=== PATIENT | female | born 1990 | race Caucasian/White ===

== ENCOUNTER 2016-12-25 19:49 | Inpatient (IN) | payer OTHER ==
[~2016-12-25] VITALS: Ht 170.2 cm; Wt 81.4 kg
[2016-12-25] VITALS (10 sets, daily range): BP systolic 107–150; BP diastolic 56–77; PULSE 61–88; TEMP 98.3–98.4
[2016-12-25 20:53] LABS: BASO % 0.4 % (0.0-2.0); EOS % 0.3 % (0-4.0); GRAN # 7.5 (1.4-6.5); GRAN % 75.3 % (42.2-75.2); HEMATOCRIT 32.3 % (37.0-47.0); HEMOGLOBIN 10.8 g/dl (12.5-16.0); LYMPH # 1.8 (1.2-3.4); LYMPH % 17.7 % (20.0-51.0); MEAN CELL VOLUME 82 fl (80.0-100.0); MEAN CORPUSCULAR HEMOGLOBIN 27 pg (27.0-31.0); MEAN CORPUSCULAR HGB CONC 33 g/dl (33.0-37.0); MEAN PLATELET VOLUME 10.1 fl (7.4-10.4); MONO # 0.6 (0.1-0.6); MONO % 5.6 % (1.7-9.3); PLATELET COUNT 261 K/mm3 (130-400); RED BLOOD COUNT 3.94 M/mm3 (4.10-5.30); REDCELL DISTRIBUTION WIDTH-CV 13.6 % (11.5-14.5); WHITE BLOOD COUNT 9.9 K/mm3 (4.8-10.8)
[2016-12-25] MEDS ORDERED: PRENATAL MVI (21:15)
[2016-12-25] MEDS ORDERED: FERROUS SU325 MG/TAB PO ×2 (21:16→21:17)
[2016-12-26] VITALS (19 sets, daily range): BP systolic 107–130; BP diastolic 57–92; PULSE 62–90; TEMP 98–98.8
[2016-12-26] MEDS ORDERED: PERCOCET 325 MG1 TA2 PO (08:46)
[2016-12-26] MEDS ORDERED: IBU800 M1 PO (08:47)
[2016-12-26 08:56] LABS: HEMATOCRIT 28.6 % (37.0-47.0); HEMOGLOBIN 9.6 g/dl (12.5-16.0)
[2016-12-27 08:17] VITALS: BP 106/61; PULSE 59; TEMP 97.3
== END 2016-12-27 12:30 | disposition home or self-care (01) | DRG 767 ==
LOC: LDR 19:49 → OB 19:49
PROVIDERS: Obstetrics & Gynecology
PROC: 10E0XZZ Delivery of Products of Conception, External Approach (ICD-10-PCS; principal; 2016-12-26)
PROC: 10D17ZZ Extraction of Products of Conception, Retained, Via Natural or Artificial Opening (ICD-10-PCS; 2016-12-26)
PROC: 0HQ9XZZ Repair Perineum Skin, External Approach (ICD-10-PCS; 2016-12-26)
DX: O42.02 Full-term premature rupture of membranes, onset of labor within 24 hours of rupture (principal); E72.12 Methylenetetrahydrofolate reductase deficiency; O99.12 Other diseases of the blood and blood-forming organs and certain disorders involving the immune mechanism complicating childbirth; D68.61 Antiphospholipid syndrome; O99.284 Endocrine, nutritional and metabolic diseases complicating childbirth; O26.23 Pregnancy care for patient with recurrent pregnancy loss, third trimester; O99.02 Anemia complicating childbirth; D64.9 Anemia, unspecified; O70.0 First degree perineal laceration during delivery; O73.0 Retained placenta without hemorrhage; Z3A.37 37 weeks gestation of pregnancy; Z37.0 Single live birth
CPT/HCPCS: J1650; J2590; J2795; J7120